=== PATIENT | male | born 1960 | race Caucasian/White ===

== ENCOUNTER 2020-07-16 13:00 | Emergency (ER) | payer SELFPAY ==
[~2020-07-16] VITALS: Ht 180.3 cm; Wt 94.3 kg
[2020-07-16 13:09] VITALS: BP 137/92
[2020-07-16] MEDS ORDERED: CLINDAMYCIN 600 MG/4 ML VIAL IM ONE (13:35)
[2020-07-16] MEDS ORDERED: IBUPROFEN 600 MG TAB PO ONE (13:35)
[2020-07-16] MEDS ORDERED: ACETAMINOPHEN 325 MG TAB PO ONE (13:35)
[2020-07-16] MEDS ORDERED: NAPR-54 PO (13:42)
[2020-07-16] MEDS ORDERED: CLIN-178 PO (13:42)
[2020-07-16 13:48] VITALS: BP 137/92
== END 2020-07-16 13:48 | disposition home or self-care (01) ==
LOC: MED 13:00
DX: L03.011 Cellulitis of right finger (principal); I11.9 Hypertensive heart disease without heart failure; W57.XXXA Bitten or stung by nonvenomous insect and other nonvenomous arthropods, initial encounter; Y93.89 Activity, other specified; Y92.89 Other specified places as the place of occurrence of the external cause; Y99.8 Other external cause status
CPT/HCPCS: 96372; 99284; J3490